=== PATIENT | female | born 1935 | race Caucasian/White ===

== ENCOUNTER → 2017-07-17 | Outpatient (CLI) | payer MEDICARE, BC ==
--- NOTE | 2017-07-17 21:11 | MR ---
EXAMINATION TYPE: MR lumbar spine wo con DATE OF EXAM: 07/17/2017 COMPARISON: NONE HISTORY: 82-year-old female Spondylolisthesis, site unspecified TECHNIQUE: Multiplanar, multisequence images of the lumbar spine were acquired. FINDINGS: Vertebral body heights are preserved. Mild heterogeneous marrow signal without suspicious bone marrow placement. Fatty matrix hemangioma wi thin T12 vertebral body. There is hypertrophic facet arthropathy throughout with trace grade 1 retrolisthesis at L2-L3 and gra de 1 anterolisthesis at L4-L5. Viable moderate intervertebral disc desiccation and mild to moderate disc space narrowing especially in the upper to mid lumbar spine. Bulging discs are present with ligamentum flavum thickening. Conus medullaris is normal. No prevertebral or paravertebral soft tissue abnormality. At T12-L1, no canal or foraminal stenosis. There is facet degenerative change present. At L1-L2, mild bulging disc and mild facet degenerative change. Changes result in mild right-sided ne ural foraminal stenosis. There is ventral impression on the thecal sac without spinal canal stenosis. At L2-L3, there is trace grade 1 retrolisthesis from hypertrophic facet arthropathy. Additional ligam entum flavum thickening and bulging disc. There is mild narrowing of the spinal canal and mild bilate ral neuroforaminal stenosis. At L3-L4, there is bulging disc with facet arthropathy and ligamentum flavum thickening. Impression o nto the ventral thecal sac without spinal canal stenosis. Minimal bilateral inferior foraminal narrow ing is present. At L4-L5, hypertrophic facet arthropathy with ligamentum flavum thickening, bulging disc, and grade 1 anterolisthesis. Changes result in mild bilateral neuroforaminal stenosis. Circumferential attenuati on of the thecal sac without significant spinal canal stenosis. At L5-S1, facet degenerative change with minimal narrowing of the left neuroforamen. No spinal canal stenosis. IMPRESSION: 1. Moderate multilevel degenerative disc disease. 2. Hypertrophic facet arthropathy throughout. There is degenerative grade 1 retrolisthesis at L2-L3 a nd grade 1 anterolisthesis at L4-L5. 3. Overall changes cause a mild spinal canal stenosis at L2-L3. Additional levels show disc material impressing on the ventral thecal sac but without significant spinal canal stenosis. No emilee canal co mpromise. 4. Variable mild neuroforaminal narrowing as outlined above.
== END ==
LOC: RADMRIMAIN 09:56
PROVIDERS: ATTEND Family Medicine
DX: M48.061 Spinal stenosis, lumbar region without neurogenic claudication (principal); M99.73 Connective tissue and disc stenosis of intervertebral foramina of lumbar region; M51.26 Other intervertebral disc displacement, lumbar region; M43.16 Spondylolisthesis, lumbar region; M51.36 Other intervertebral disc degeneration, lumbar region; M46.86 Other specified inflammatory spondylopathies, lumbar region
CPT/HCPCS: 72148

== ENCOUNTER → 2017-08-25 | Outpatient (CLI) | payer MEDICARE, BC ==
--- NOTE | 2017-08-26 07:14 | US ---
EXAMINATION TYPE: US carotid duplex BILAT DATE OF EXAM: 08/25/2017 COMPARISON: NONE CLINICAL HISTORY: R55 Syncope. Two falls recently and syncope, h/o TIA EXAM MEASUREMENTS: RIGHT: Peak Systolic Velocity (PSV) cm/sec ----- Right CCA: 89.2 ----- Right ICA: 125.6 ----- Right ECA: 92.2 ICA/CCA ratio: 1.4 RIGHT: End Diastole cm/sec ----- Right CCA: 22.1 ----- Right ICA: 39.9 ----- Right ECA: 14.5 LEFT: Peak Systolic Velocity (PSV) cm/sec ----- Left CCA: 84.3 ----- Left ICA: 104.0 ----- Left ECA: 123.8 ICA/CCA ratio: 1.2 LEFT: End Diastole cm/sec ----- Left CCA: 20.6 ----- Left ICA: 32.6 ----- Left ECA: 15.1 VERTEBRALS (direction of flow): Right Vertebral: Antegrade Left Vertebral: Antegrade Rhythm: Normal Grayscale images show mild peripheral plaque at bilateral carotid bulbs. Velocity measurements and ri ght internal carotid artery are upper limits of normal. IMPRESSION: Mild bilateral plaque without hemodynamically significant stenosis seen in either inter nal carotid artery. Criteria for Assigning % of Stenosis / Diameter reduction (Estimation based on the indirect measurements of the internal carotid artery velocities (ICA PSV). 1. Normal (no stenosis)=ICA PSV < 125 cm/s: ratio < 2.0: ICA EDV<40 cm/s. 2. Less than 50% stenosis=ICA PSV < 125 cm/s: ratio < 2.0: ICA EDV<40 cm/s. 3. 50 to 69% stenosis=ICA PSV of 125 to 230 cm/s: ration 2.0 ? 4.0: ICA EDV 40-100 cm/s. 4. Greater than 70% stenosis to near occlusion= ICA PSV > 230 cm/s: ratio > 4.0: ICA EDV > 100 cm/s. 5. Near occlusion= ICA PSV velocities may be low or undetectable: variable ratio and ICA EDV. 6. Total occlusion=unable to detect flow.
== END | disposition home or self-care (01) ==
LOC: RADUSWWP 15:33
PROVIDERS: ATTEND Family Medicine
DX: I65.23 Occlusion and stenosis of bilateral carotid arteries (principal)
CPT/HCPCS: 93880

== ENCOUNTER → 2019-10-12 | Outpatient (CLI) | payer MEDICARE, BC ==
--- NOTE | 2019-10-13 10:28 | ECHOF ---
Referral Reason:I50.9 Heart failure, unspecified MEASUREMENTS -------- HEIGHT: 154.9 cm WEIGHT: 56.7 kg BP: RVIDd: 2.9 cm (< 3.3) IVSd: 1.1 cm (0.6 - 1.1) LVIDd: 3.7 cm (3.9 - 5.3) LVPWd: 1.1 cm (0.6 - 1.1) IVSs: 1.7 cm LVIDs: 2.3 cm LVPWs: 1.6 cm LA Diam: 3.2 cm (2.7 - 3.8) LAESV Index (A-L): 27.99 ml/m Ao Diam: 2.4 cm (2.0 - 3.7) AV Cusp: 1.5 cm (1.5 - 2.6) MV EXCURSION: 9.333 mm (> 18.000) MV EF SLOPE: 25 mm/s (70 - 150) EPSS: 0.4 cm MV E Tay: 0.74 m/s MV DecT: 269 ms MV A Tay: 1.15 m/s MV E/A Ratio: 0.64 AV maxP.45 mmHg AV meanP.31 mmHg RAP: 5.00 mmHg RVSP: 27.34 mmHg FINDINGS -------- Sinus rhythm. This was a technically adequate study. The left ventricular size is normal. There is borderline concentric left ventricular hypertrophy. Overall left ventricular systolic function is normal with, an EF between 55 - 60 %. The right ventricle is normal in size. Normal LA size by volume 22+/-6 ml/m2. The right atrium is normal in size. Interatrial and interventricular septum intact. There is mild to moderate aortic valve sclerosis. Trace amount of aortic regurgitation. There is mild aortic stenosis present. Peak/mean gradient across the Aortic Valve is 17.45mmHg / 9.31mmHg. The mitral valve leaflets are mildly thickened. Mild mitral annular calcification present. Mild m itral regurgitation is present. Mild tricuspid regurgitation present. Right ventricular systolic pressure is normal at < 35 mmHg. Trace/mild (physiologic) pulmonic regurgitation. The aortic root size is normal. Normal inferior vena cava with normal inspiratory collapse consistent with estimated right atrial pre ssure of 5 mmHg. There is no pericardial effusion. CONCLUSIONS -------- 1. Sinus rhythm. 2. This was a technically adequate study. 3. The left ventricular size is normal. 4. There is borderline concentric left ventricular hypertrophy. 5. The right ventricle is normal in size. 6. Normal LA size by volume 22+/-6 ml/m2. 7. The right atrium is normal in size. 8. Interatrial and interventricular septum intact. 9. There is mild to moderate aortic valve sclerosis. 10. Trace amount of aortic regurgitation. 11. There is mild aortic stenosis present. 12. Peak/mean gradient across the Aortic Valve is 17.45mmHg / 9.31mmHg. 13. The mitral valve leaflets are mildly thickened. 14. Mild mitral annular calcification present. 15. Mild mitral regurgitation is present. 16. Mild tricuspid regurgitation present. 17. Right ventricular systolic pressure is normal at < 35 mmHg. 18. Trace/mild (physiologic) pulmonic regurgitation. 19. The aortic root size is normal. 20. Normal inferior vena cava with normal inspiratory collapse consistent with estimated right atrial pressure of 5 mmHg. 21. There is no pericardial effusion. [facility]: SAMMI[facility] Coffman
== END | disposition home or self-care (01) ==
LOC: RADECHMAIN 12:01
PROVIDERS: ATTEND Family Medicine
DX: I08.1 Rheumatic disorders of both mitral and tricuspid valves (principal)
CPT/HCPCS: 93306